=== PATIENT | male | born 1970 | race Caucasian/White ===

== ENCOUNTER → 2016-07-22 | Outpatient (CLI) | payer OTHER | LOC: FIMAGING 15:30 | PROVIDERS: ATTEND Radiology Diagnostic Radiology | DX: I82.411 Acute embolism and thrombosis of right femoral vein (principal); I82.4Z1 Acute embolism and thrombosis of unspecified deep veins of right distal lower extremity ==

== ENCOUNTER 2016-10-25 20:25 | Emergency (ER) | payer OTHER ==
[2016-10-25 20:31] VITALS: RESP 16; O2SAT 96
--- NOTE | 2016-10-25 20:38 | EDPHY ---
H & P Stated Complaint: Fever, chills, nausea, diarrhea, body aches Time Seen by Provider: 10/25/16 20:37 HPI/ROS: CHIEF COMPLAINT: Fever, chills, recent travel to [facility] HISTORY OF PRESENT ILLNESS: The patient presents to the ED with a 1 day history of fever and chills. The patient traveled to [facility] and returned 2 weeks ago. The patient did have traveler's diarrhea which was treated with azithromycin for 7 days. The patient does have a history of Clostridium difficile colitis and was on prophylactic vancomycin while using at antibiotic. The patient was traveling in area which was low risk for malaria he was on prophylactic anti malarial medications. The patient has no complaints of headache, neck pain, sore throat, cough, rash or myalgias. REVIEW OF SYSTEMS: A comprehensive 10 point review of systems is otherwise negative aside from elements mentioned in the history of present illness. Source: Patient Exam Limitations: No limitations - Personal History Current Tetanus/Diphtheria Vaccine: Yes - Medical/Surgical History Hx Asthma: No Hx Chronic Respiratory Disease: No Hx Diabetes: No Hx Cardiac Disease: No Hx Renal Disease: No Hx Cirrhosis: No Hx Alcoholism: No Hx HIV/AIDS: No Hx Splenectomy or Spleen Trauma: No Other PMH: c-diff (2015), osteomyelitis, DVT, factor V leiden - Social History Smoking Status: Never smoked - Physical Exam Exam: General Appearance: Alert, no distress Eyes: Pupils equal and round no pallor or injection ENT, Mouth: Mucous membranes moist Respiratory: There are no retractions, lungs are clear to auscultation Cardiovascular: Regular rate and rhythm Gastrointestinal: Abdomen is soft and nontender, no masses, bowel sounds normal Neurological: A&O, normal motor function, normal sensory exam, normal cranial nerves Skin: Warm and dry, no rashes Musculoskeletal: Neck is supple nontender, specifically no meningeal symptoms Extremities: symmetrical, full range of motion Psychiatric: Patient is oriented X 3, there is no agitation Constitutional: Initial Vital Signs Temperature (C) 37.1 C 10/25/16 20:27 Heart Rate 80 10/25/16 20:27 Respiratory Rate 16 10/25/16 20:27 Blood Pressure 153/90 H 10/25/16 20:27 O2 Sat (%) 96 10/25/16 20:27 O2 Delivery Mode Room Air Allergies/Adverse Reactions: Sulfa (Sulfonamide Antibiotics) Allergy (Verified 10/25/16 20:32) Home Medications: Medication Instructions Recorded Vancomycin 10/25/16 Medical Decision Making ED Course/Re-evaluation: The patient presents to the ED with a febrile illness after recent travel to [facility]. The patient is nontoxic and well-appearing. He has no clinical evidence of meningitis. He has no respiratory symptoms. The patient has no history of immunosuppression. The patient does have pending West Nile, malaria and stool pathogens. The patient has been seen at the [facility]. I did uyen Mckeon from Infectious Disease informing her of the workup. Patient will be discharged home and follow up with Infectious Disease. He will continue Tylenol and ibuprofen. He is instructed to return to the ED for the development of any upper respiratory symptoms, severe headache, neck stiffness, rash, arthralgias, acute pain or other concerns. Differential Diagnosis: Differential diagnosis considered includes viral syndrome, bacteremia, Clostridium difficile colitis, West Nile virus, malaria - Data Points Laboratory Results: Laboratory Results 10/25/16 20:55 10/25/16 20:55 10/25/16 10/25/16 10/25/16 20:55 20:55 20:55 WBC RBC Hgb Hct MCV MCH MCHC RDW Plt Count MPV Neut % (Auto) Lymph % (Auto) [place] % (Auto) Eos % (Auto) Baso % (Auto) Nucleat RBC Rel Count Absolute Neuts (auto) Absolute Lymphs (auto) Absolute Monos (auto) Absolute Eos (auto) Absolute Basos (auto) Absolute Nucleated RBC Immature Gran % Immature Gran # Sodium 137 mEq/L mEq/L (134-144) Potassium 4.1 mEq/L mEq/L (3.5-5.2) Chloride 102 mEq/L mEq/L (97-110) Carbon Dioxide 25 mEq/l mEq/l (22-31) Anion Gap 10 mEq/L mEq/L (8-16) BUN 14 mg/dL mg/dL (7-23) Creatinine 1.1 mg/dL mg/dL (0.7-1.3) Estimated GFR > 60 Glucose 97 mg/dL mg/dL (70-100) Calcium 8.5 mg/dL mg/dL (8.5-10.4) Total Bilirubin 0.6 mg/dL mg/dL (0.1-1.4) Conjugated Bilirubin 0.2 mg/dL mg/dL (0.0-0.5) Unconjugated Bilirubin 0.4 mg/dL mg/dL (0.0-1.1) AST 31 IU/L IU/L (17-59) ALT 32 IU/L IU/L (21-72) Alkaline Phosphatase 50 IU/L IU/L (38-126) Total Protein 6.6 g/dL g/dL (6.3-8.2) Albumin 3.9 g/dL g/dL (3.5-5.0) West Nile Virus IgG Ab Pending West Nile Virus IgM Ab Pending West Nile Interp Pending Malaria Smear Pending Malaria Sm Path Review Pending 10/25/16 20:55 WBC 5.10 10^3/uL 10^3/uL (3.80-9.50) RBC 4.66 10^6/uL 10^6/uL (4.40-6.38) Hgb 14.5 g/dL g/dL (13.7-17.5) Hct 42.6 % % (40.0-51.0) MCV 91.4 fL fL (81.5-99.8) MCH 31.1 pg pg (27.9-34.1) MCHC 34.0 g/dL g/dL (32.4-36.7) RDW 12.5 % % (11.5-15.2) Plt Count 179 10^3/uL 10^3/uL (150-400) MPV 8.8 fL fL (8.7-11.7) Neut % (Auto) 76.8 % H % (39.3-74.2) Lymph % (Auto) 14.7 % L % (15.0-45.0) [place] % (Auto) 7.1 % % (4.5-13.0) Eos % (Auto) 0.6 % % (0.6-7.6) Baso % (Auto) 0.6 % % (0.3-1.7) Nucleat RBC Rel Count 0.0 % % (0.0-0.2) Absolute Neuts (auto) 3.92 10^3/uL 10^3/uL (1.70-6.50) Absolute Lymphs (auto) 0.75 10^3/uL L 10^3/uL (1.00-3.00) Absolute Monos (auto) 0.36 10^3/uL 10^3/uL (0.30-0.80) Absolute Eos (auto) 0.03 10^3/uL 10^3/uL (0.03-0.40) Absolute Basos (auto) 0.03 10^3/uL 10^3/uL (0.02-0.10) Absolute Nucleated RBC 0.00 10^3/uL 10^3/uL (0-0.01) Immature Gran % 0.2 % % (0.0-1.1) Immature Gran # 0.01 10^3/uL 10^3/uL (0.00-0.10) Sodium Potassium Chloride Carbon Dioxide Anion Gap BUN Creatinine Estimated GFR Glucose Calcium Total Bilirubin Conjugated Bilirubin Unconjugated Bilirubin AST ALT Alkaline Phosphatase Total Protein Albumin West Nile Virus IgG Ab West Nile Virus IgM Ab West Nile Interp Malaria Smear Malaria Sm Path Review Departure - Departure Disposition: Home, Routine, Self-Care Clinical Impression: Acute febrile illness Condition: Good Instructions: Fever in Adults (ED) Additional Instructions: 1. Please return to the ED for any upper respiratory symptoms such as cough or difficulty breathing, severe headache, neck stiffness, development of acute pain , rash or other concerns. 2. Please contact the Infectious Disease Clinic to schedule a follow-up visit to review your pending laboratory studies. Referrals: Monet Mckeon MD [Medical Doctor] - As per Instructions
[2016-10-25 21:05] LABS: % IMMATURE GRANULYOCYTES 0.2 % (0.0-1.1); ABSOLUTE IMMATURE GRANULOCYTES 0.01 10^3/uL (0.00-0.10); ADD DIFF? NO; ADD MORPH? NO; ADD SCAN? NO; ATYPICAL LYMPHOCYTE FLAG 20 (0-99); FRAGMENT RBC FLAG 0 (0-99); HEMATOCRIT 42.6 % (40.0-51.0); HEMOGLOBIN 14.5 g/dL (13.7-17.5); LEFT SHIFT FLG 0 (0-99); LIPEMIA HEMOLYSIS FLAG 90 (0-99); MEAN CELL HEMOGLOBIN 31.1 pg (27.9-34.1); MEAN CELL VOLUME 91.4 fL (81.5-99.8); MEAN PLATELET VOLUME 8.8 fL (8.7-11.7); PLATELET CLUMPS FLAG 10 (0-99); PLATELET COUNT 179 10^3/uL (150-400); RED BLOOD CELL COUNT 4.66 10^6/uL (4.40-6.38); RED CELL DISTRIBUTION WIDTH 12.5 % (11.5-15.2)
[2016-10-25 21:19] LABS: ALANINE AMINOTRANSFERASE 32 IU/L (21-72); ALBUMIN 3.9 g/dL (3.5-5.0); ALKALINE PHOSPHATASE 50 IU/L (38-126); ANION GAP 10 mEq/L (8-16); ASPARTATE AMINOTRANSFERASE 31 IU/L (17-59); BILIRUBIN,TOTAL 0.6 mg/dL (0.1-1.4); BILIRUBIN-CONJUGATED 0.2 mg/dL (0.0-0.5); BILIRUBIN-UNCONJUGATED 0.4 mg/dL (0.0-1.1); CALCIUM 8.5 mg/dL (8.5-10.4); CARBON DIOXIDE 25 mEq/l (22-31); CHLORIDE 102 mEq/L (97-110); CREATININE 1.1 mg/dL (0.7-1.3); GLOMERULAR FILTRATION RATE > 60; GLUCOSE 97 mg/dL (70-100); POTASSIUM 4.1 mEq/L (3.5-5.2); SODIUM 137 mEq/L (134-144); TOTAL PROTEIN 6.6 g/dL (6.3-8.2)
[2016-10-25 21:59] VITALS: BP 136/82; PULSE 67; TEMP 99.1
[2016-10-25 22:15] LABS: MALARIAL PREP NONE SEEN (NONE SEEN)
[2016-10-28 15:04] LABS: INTERPRETATION See Comments; WEST NILE VIRUS IGG Negative (Negative); WEST NILE VIRUS IGM Negative (Negative)
== END 2016-10-25 21:59 | disposition home or self-care (01) ==
DX: R50.9 Fever, unspecified (principal)